=== PATIENT | male | born 1950 | race Caucasian/White ===

== ENCOUNTER 2019-08-25 11:44 | Emergency (ER) | payer MEDICARE, BC ==
[2019-08-25] MEDS ORDERED: Iopamidol 755 Mg/ML 100 ML Bottle IVPUSH ONE (12:17)
[2019-08-25 12:28] LABS: CHLORIDE,CL 106 mmol/L (98-107); SODIUM,NA 140 mmol/L (136-145)
--- NOTE | 2019-08-25 12:45 | EDM.PDOC ---
ED HPI GENERAL MEDICAL PROBLEM - General Chief Complaint: Neuro Symptoms/Deficits Stated Complaint: stroke code Time Seen by Provider: 08/25/19 11:44 Source of Information: Reports: Patient History Limitations: Reports: No Limitations - History of Present Illness INITIAL COMMENTS - FREE TEXT/NARRATIVE: Patient is a 69-year-old last one was at 6:00 in the morning states that he woke up earlier today and noticed that he had right-sided weakness and slurred speech at this time his NIH score was 7 Onset: Today Duration: Hour(s):, Constant Location: Reports: Head, Upper Extremity, Right, Lower Extremity, Right Severity: Moderate Worsens with: Reports: None Context: Reports: Other (Possible stroke) - Related Data Allergies Allergy/AdvReac Type Severity Reaction Status Date / Time No Known Allergies Allergy Verified 10/14/13 15:36 Home Meds: Home Meds Hydrochlorothiazide 12.5 mg PO DAILY 11/01/13 [History] Metoprolol Succinate [Toprol XL 100mg] 100 mg PO DAILY 11/01/13 [History] Terazosin [Hytrin] 10 mg PO DAILY 11/01/13 [History] Verapamil HCl [Verapamil ER] 240 mg PO DAILY 11/01/13 [History] atorvaSTATin [Lipitor] 20 mg PO DAILY 11/01/13 [History] Finasteride 5 mg PO DAILY 08/25/19 [History] Lisinopril 20 mg PO DAILY 08/25/19 [History] Sertraline [Zoloft] 25 mg PO DAILY 08/25/19 [History] ED ROS GENERAL - Review of Systems Review Of Systems: See Below Constitutional: Reports: Weakness HEENT: Reports: Other (Slurred speech) Respiratory: Reports: No Symptoms Cardiovascular: Reports: No Symptoms Endocrine: Reports: No Symptoms GI/Abdominal: Reports: No Symptoms : Reports: No Symptoms Musculoskeletal: Reports: No Symptoms, Other (Right-sided weakness) Skin: Reports: No Symptoms Neurological: Reports: Difficulty Walking, Other (Right-sided weakness) Psychiatric: Reports: No Symptoms Hematologic/Lymphatic: Reports: No Symptoms Immunologic: Reports: No Symptoms ED EXAM, GENERAL - Physical Exam Exam: See Below Ears: Normal External Exam, Normal Canal, Hearing Grossly Normal, Normal TMs Ear Exam: Bilateral Ear: Auricle Normal, Canal Normal, TM normal Nose: Normal Inspection, Normal Mucosa, No Blood Throat/Mouth: Normal Inspection, Normal Lips, Normal Teeth, Normal Gums, Normal Oropharynx, Normal Voice, No Airway Compromise Head: Atraumatic, Normocephalic Neck: Normal Inspection, Supple, Non-Tender, Full Range of Motion Respiratory/Chest: No Respiratory Distress, Lungs Clear, Normal Breath Sounds, No Accessory Muscle Use, Chest Non-Tender GI/Abdominal: Normal Bowel Sounds, Soft, Non-Tender, No Organomegaly, No Distention, No Abnormal Bruit, No Mass Rectal (Males) Exam: Normal Exam, Normal Rectal Tone, Prostate Normal Extremities: Normal Inspection, Normal Range of Motion, Non-Tender, Normal Capillary Refill, No Pedal Edema Neurological: Alert, Normal Cognition, Other (Right-sided drift right-sided weakness and slurred speech) Psychiatric: Normal Affect Skin Exam: Warm, Dry, Intact, Normal Color, No Rash Lymphatic: No Adenopathy Course - Orders/Labs/Meds Orders: Active Orders 24 hr Category Date Time Status Head wo Cont [CT] Routine Exams 08/25/19 11:54 Taken PROLACTIN [REF] Stat Lab 08/25/19 11:51 Received Labs: Laboratory Tests 08/25/19 08/25/19 08/25/19 Range/Units 11:46 11:51 11:51 WBC 6.4 (4.0-10.2) K/uL RBC 5.32 (4.33-5.41) M/uL Hgb 14.9 (13.1-16.8) g/dL Hct 45.6 (39.0-49.0) % MCV 85.7 (84.0-98.0) fL MCH 28.0 L (28.2-33.3) pg MCHC 32.7 (31.7-36.0) g/dL RDW 14.9 H (11.2-14.1) % Plt Count 214 (150-350) K/uL Neut % (Auto) 62.1 (45.0-80.0) % Lymph % (Auto) 28.1 (10.0-50.0) % [place] % (Auto) 7.6 (2.0-14.0) % Eos % (Auto) 1.9 (0.0-5.0) % Baso % (Auto) 0.3 (0.0-2.0) % Neut # (Auto) 3.98 (1.40-7.00) K/uL Lymph # (Auto) 1.80 (0.50-3.50) K/uL [place] # (Auto) 0.49 (0.00-1.00) K/uL Eos # (Auto) 0.12 (0.00-0.50) K/uL Baso # (Auto) 0.02 (0.00-0.20) K/uL PT 10.6 (9.5-12.0) SEC INR 1.0 APTT 29.4 (21.0-31.3) SEC D-Dimer, Quantitative (0-400) ng/mL Sodium (136-145) mmol/L Potassium (3.5-5.1) mmol/L Chloride (98-107) mmol/L Carbon Dioxide (21.0-32.0) mmol/L BUN (7-18) mg/dL Creatinine (0.51-1.17) mg/dL Est Cr Clr Drug Dosing Estimated GFR (MDRD) mL/min Glucose (74-106) mg/dL POC Glucose 96 (65-110) mg/dl Calcium (8.5-10.1) mg/dL Magnesium (1.8-2.4) mg/dL Total Bilirubin (0.2-1.0) mg/dL AST (15-37) U/L ALT (12-78) U/L Alkaline Phosphatase (46-116) IU/L Creatine Kinase (26-308) U/L Creatine Kinase Index (0.0-2.5) % CK-MB (CK-2) (0.00-3.60) ng/mL Troponin I (0.000-0.056) ng/mL NT-Pro-B Natriuret Pep (0-125) pg/mL Total Protein (6.4-8.2) g/dL Albumin (3.4-5.0) g/dL 08/25/19 08/25/19 Range/Units 11:51 11:51 WBC (4.0-10.2) K/uL RBC (4.33-5.41) M/uL Hgb (13.1-16.8) g/dL Hct (39.0-49.0) % MCV (84.0-98.0) fL MCH (28.2-33.3) pg MCHC (31.7-36.0) g/dL RDW (11.2-14.1) % Plt Count (150-350) K/uL Neut % (Auto) (45.0-80.0) % Lymph % (Auto) (10.0-50.0) % [place] % (Auto) (2.0-14.0) % Eos % (Auto) (0.0-5.0) % Baso % (Auto) (0.0-2.0) % Neut # (Auto) (1.40-7.00) K/uL Lymph # (Auto) (0.50-3.50) K/uL [place] # (Auto) (0.00-1.00) K/uL Eos # (Auto) (0.00-0.50) K/uL Baso # (Auto) (0.00-0.20) K/uL PT (9.5-12.0) SEC INR APTT (21.0-31.3) SEC D-Dimer, Quantitative 213 (0-400) ng/mL Sodium 140 (136-145) mmol/L Potassium 4.5 (3.5-5.1) mmol/L Chloride 106 (98-107) mmol/L Carbon Dioxide 26.0 (21.0-32.0) mmol/L BUN 26 H (7-18) mg/dL Creatinine 1.63 H (0.51-1.17) mg/dL Est Cr Clr Drug Dosing TNP Estimated GFR (MDRD) 42 mL/min Glucose 102 (74-106) mg/dL POC Glucose (65-110) mg/dl Calcium 10.0 (8.5-10.1) mg/dL Magnesium 1.9 (1.8-2.4) mg/dL Total Bilirubin 0.5 (0.2-1.0) mg/dL AST 13 L (15-37) U/L ALT 25 (12-78) U/L Alkaline Phosphatase 69 (46-116) IU/L Creatine Kinase 61 (26-308) U/L Creatine Kinase Index 1.6 (0.0-2.5) % CK-MB (CK-2) 1.00 (0.00-3.60) ng/mL Troponin I 0.000 (0.000-0.056) ng/mL NT-Pro-B Natriuret Pep 176 H (0-125) pg/mL Total Protein 7.5 (6.4-8.2) g/dL Albumin 3.5 (3.4-5.0) g/dL Meds: Medications Discontinued Medications Generic Name Dose Route Start Last Admin Trade Name Lizeth PRN Reason Stop Dose Admin Alteplase, Recombinant Confirm 08/25/19 12:05 Activase Administered 08/25/19 12:06 Dose 100 mg .ROUTE .STK-MED ONE Iopamidol 100 ml 08/25/19 12:17 Isovue-370 (76%) IVPUSH 08/25/19 12:18 ONETIME ONE Departure - Departure Time of Disposition: 12:47 Disposition: Home, Self-Care 01 Condition: Fair Clinical Impression: Right-sided cerebrovascular accident (CVA), Cerebrovascular accident (CVA) - Discharge Information *PRESCRIPTION DRUG MONITORING PROGRAM REVIEWED*: No *COPY OF PRESCRIPTION DRUG MONITORING REPORT IN PATIENT WANG: No Referrals: Marleen Pillai NP [Primary Care Provider] - Care Plan Goals: Spoke to neurology would like patient sent to ER at [facility] - My Orders Last 24 Hours: My Active Orders 08/25/19 11:51 PROLACTIN [REF] Stat 08/25/19 11:54 Head wo Cont [CT] Routine - Assessment/Plan Last 24 Hours: My Active Orders 08/25/19 11:51 PROLACTIN [REF] Stat 08/25/19 11:54 Head wo Cont [CT] Routine
== END 2019-08-25 12:55 | disposition home or self-care (01) ==
LOC: LL.ED 11:44
DX: I63.9 Cerebral infarction, unspecified (principal); R47.81 Slurred speech; Z79.899 Other long term (current) drug therapy
CPT/HCPCS: 36000; 70450; 80053; 82550; 82553; 82962; 83735; 83880; 84146; 84484; 85025; 85379; 85610; 85730; 93005; 99291-25

== ENCOUNTER 2020-03-07 07:55 | Day surgery (SDC) | payer MEDICARE, BC ==
[~2020-03-07 07:55] MED LIST: Lactated Ringers 1,000 ML IV SCH; Sodium Chloride 0.9% 10 ML Syringe FLUSH PRN
[2020-03-07] MEDS ORDERED: Propofol 200 MG/20 ML SDV ONE ×2 (08:41→08:57)
[2020-03-07] MEDS ORDERED: Midazolam 1 MG/ML 2 ML SDV ONE ×2 (08:41→08:57)
--- NOTE | 2020-03-07 09:07 | PCM.PN ---
- General Info Date of Service: 03/07/20 - Review of Systems Systems Review Comment:: 69-year-old male with her recently discovered colon guard positive test. He is here for colonoscopy. His last colon exam was approximately 5 years ago.This was an incomplete exam. He denies any recent rectal bleeding. He does note some history of constipation. His recent history and physical is reviewed and no significant changes are noted. Patient is medically stable to proceed today. I discussed the proposed colonoscopy with the patient. Risks such as but not limited to bleeding and GI injury reviewed. He agrees to proceed. - Patient Data Vitals - Most Recent: Last Vital Signs Temp 98 F 03/07/20 08:10 Pulse 68 03/07/20 08:10 Resp 20 03/07/20 08:10 BP 140/88 03/07/20 08:10 Pulse Ox 96 03/07/20 08:10 Weight - Most Recent: 142.882 kg Med Orders - Current: Current Medications Lactated Ringer's (Ringers, Lactated) 1,000 mls @ 125 mls/hr IV ASDIRECTED JOSSELIN Last Admin: 03/07/20 08:46 Dose: 125 mls/hr Sodium Chloride (Saline Flush) 10 ml FLUSH ASDIRECTED PRN PRN Reason: Keep Vein Open Discontinued Medications Midazolam HCl (Versed 1 Mg/Ml) Confirm Administered Dose 2 mg .ROUTE .STK-MED ONE Stop: 03/07/20 08:42 Propofol (Diprivan 20 Ml) Confirm Administered Dose 400 mg .ROUTE .STK-MED ONE Stop: 03/07/20 08:42 Sepsis Event Note - Focused Exam Vital Signs: Vital Signs Temp Pulse Resp BP Pulse Ox 03/07/20 08:10 98 F 68 20 140/88 96 Date Exam was Performed: 03/07/20 Time Exam was Performed: 09:05 - Problem List Review Problem List Initiated/Reviewed/Updated: Yes - Assessment Assessment:: positive colon guard - Plan Plan:: colonoscopy
--- NOTE | 2020-03-07 09:45 | PCM.OPNOTE ---
- General Post-Op/Procedure Note Date of Surgery/Procedure: 03/07/20 Operative Procedure(s): Colonoscopy with Polypectomy Findings: Large Pedunculated polyp in Sigmoid Colon Pre Op Diagnosis: + Cologuard Post-Op Diagnosis: Colon Polyp Anesthesia Technique: MAC Primary Surgeon: Milton Gonzalez Pathology: Sigmoid Colon Polyp Output, Urine Amount: 0 EBL in mLs: 0 Complications: None Condition: Good
[2020-03-07 10:01] VITALS: BP 102/59
[2020-03-07 10:09] VITALS: PULSE 61
--- NOTE | 2020-03-07 14:54 | OR ---
Date of Procedure: 03/07/2020 PREOPERATIVE DIAGNOSIS: Positive Cologuard. POSTOPERATIVE DIAGNOSIS: Sigmoid colon polyp. OPERATIONS PERFORMED: Colonoscopy with polypectomy. INDICATIONS FOR SURGERY: This 69-year-old male was recently noted to have positive Cologuard test. It has been several years since his last colonoscopy, and he is referred for this exam. FINDINGS: A single polyp was noted on today's exam. It is a 1.5 cm pedunculated polyp in the sigmoid colon, 25 cm from the anal verge. The remainder of the colon mucosa appeared normal. DESCRIPTION OF PROCEDURE: The patient was taken to the operating room. He was given intravenous sedation and with him in the left lateral decubitus position, digital rectal exam was performed showing no rectal masses. The Olympus colonoscope was inserted into the rectum. Retroflexed examination of the rectal canal was performed. The scope was then advanced to the sigmoid colon region where the above-described polyp was identified. It was removed with a cautery snare and withdrawn from the colon and retrieved by holding it on the end of the scope with suction and withdrawing the scope. After the polyp had been retrieved, the scope was then reinserted and then carefully advanced under direct visualization examining the entire colon. The patient's colon was long and somewhat tortuous and it was difficult to visualize the cecum, but with hand pressure and placing the patient in the supine position, the ascending colon was able to be entered with the scope and the cecum including the ileocecal valve viewed. The scope was then slowly withdrawn sequentially re-examining the colonic segments until the entire colon and rectum had been fully examined. The scope was removed, and the patient was taken from the operating room in satisfactory condition. ESTIMATED BLOOD LOSS: 0. COMPLICATIONS: None. PROGNOSIS: Good. MILAN Gonzalez MD /[id number]
== END 2020-03-07 10:30 | disposition home or self-care (01) ==
LOC: LL.SDS 07:55
PROVIDERS: ATTEND Surgery
DX: K51.40 Inflammatory polyps of colon without complications (principal); K40.90 Unilateral inguinal hernia, without obstruction or gangrene, not specified as recurrent; N40.1 Benign prostatic hyperplasia with lower urinary tract symptoms; E78.5 Hyperlipidemia, unspecified; I12.9 Hypertensive chronic kidney disease with stage 1 through stage 4 chronic kidney disease, or unspecified chronic kidney disease; N18.3 Chronic kidney disease, stage 3 (moderate); Q43.8 Other specified congenital malformations of intestine; Z91.14 Patient's other noncompliance with medication regimen; Z79.82 Long term (current) use of aspirin; Z79.899 Other long term (current) drug therapy
CPT/HCPCS: 00811; J2250; J2704; J7120

== ENCOUNTER 2022-09-12 09:11 | Emergency (ER) | payer MEDICARE, BC ==
[2022-09-12] MEDS ORDERED: Sodium Chloride 0.9% 10 ML Syringe FLUSH PRN (09:52)
[2022-09-12] MEDS ORDERED: methylPREDNISolone Sodium Succinate 125 MG/2 ML SDV IVPUSH PRN (09:53)
[2022-09-12] MEDS ORDERED: Famotidine 20 MG/2 ML SDV IVPUSH PRN (09:53)
[2022-09-12] MEDS ORDERED: diphenhydrAMINE 50 MG/ML SDV IVPUSH PRN (09:53)
[2022-09-12] MEDS ORDERED: EPINEPHrine 1 MG/ML SDV IM PRN (09:53)
[2022-09-12 10:04] LABS: CHLORIDE,CL 104 mmol/L (98-107); SODIUM,NA 139 mmol/L (136-145)
[2022-09-12 10:06] LABS: ESTIMATED GFR 31 mL/min (>=60)
[2022-09-12] MEDS: Sodium Chloride 0.9% 10 ML Syringe FLUSH SCH (10:25)
[2022-09-12] MEDS: Acetaminophen/HYDROcodone 325-5 MG Tab PO ONE (10:33)
[2022-09-12 11:16] VITALS: BP 148/81; PULSE 65
== END 2022-09-12 11:40 | disposition home or self-care (01) ==
LOC: LL.ED 09:11
DX: U07.1 COVID-19 (principal); E78.00 Pure hypercholesterolemia, unspecified; I10 Essential (primary) hypertension; Z79.899 Other long term (current) drug therapy
CPT/HCPCS: 36415; 71045; 80053; 85025; 96372; 99283; 99284; A9270-GY; J3490; M0222; Q0222

== ENCOUNTER 2022-10-10 12:06 | Inpatient (IN) | payer MEDICARE, BC ==
[2022-10-10] MEDS ORDERED: Ondansetron 4 MG/2 ML SDV IVPUSH ONE (12:15)
[2022-10-10 13:03] LABS: CORONAVIRUS COVID-19 NAA NEGATIVE (NEGATIVE); RESPIRATORY SYNCYTIAL VIR NAA NEGATIVE (NEGATIVE)
[2022-10-10 13:40] LABS: CHLORIDE,CL 105 mmol/L (98-107); ESTIMATED GFR 31 mL/min (>=60); SODIUM,NA 137 mmol/L (136-145)
[2022-10-10] MEDS: Sodium Chloride 0.9% 10 ML Syringe FLUSH PRN (13:44)
[2022-10-10] MEDS ORDERED: Furosemide 40 MG/4 ML VIAL IVPUSH ONE (13:57)
[2022-10-10] MEDS ORDERED: cloNIDine 0.1 MG Tab PO ONE (15:27)
[2022-10-10 16:20] LABS: O2 DELIVERY DEVICE ROOM AIR; PCO2 ARTERIAL 40 mmHG (35-45)
[2022-10-10 16:22] LABS: BASE EXCESS ARTERIAL -4 mmol/L (-2-3); BICARBONATE,ARTERIAL 21.4 mmol/L (22-26); O2 SATURATION ARTERIAL 89 % (95-98); PO2 ARTERIAL 59 mmHG (80-105)
[2022-10-10] MEDS: cefTRIAXone 1 GM in Sodium Chloride 0.9% 100 ML IV SCH (18:12)
[2022-10-10] MEDS: Albuterol/Ipratropium 3.0-0.5 MG/3 ML Neb Soln NEB SCH ×2 (18:14→23:38)
[2022-10-10] MEDS ORDERED: Ondansetron 4 MG/2 ML SDV IVPUSH PRN (18:55)
[2022-10-10] MEDS: atorvaSTATin 20 MG Tab PO SCH (19:55)
[2022-10-10] MEDS: Azithromycin 500 MG in Sodium Chloride 0.9% 250 ML IV SCH (19:56)
[2022-10-10] MEDS: Nystatin Topical Powder 15 GM Bottle TOP SCH (20:19)
[2022-10-11] MEDS: Albuterol/Ipratropium 3.0-0.5 MG/3 ML Neb Soln NEB SCH ×6 (00:20→20:13)
[2022-10-11] MEDS: Verapamil 120 MG Tab.ER PO SCH (07:43)
[2022-10-11] MEDS: Terazosin 5 MG Cap PO SCH (07:43)
[2022-10-11] MEDS: Sertraline 25 MG Tab PO SCH (07:44)
[2022-10-11] MEDS: Cholecalciferol (Vitamin D3) 25 MCG Tab PO SCH (07:44)
[2022-10-11] MEDS: Lisinopril 20 MG Tab PO SCH (07:44)
[2022-10-11] MEDS: Metoprolol Succinate 50 MG Tab.ER PO SCH (07:44)
[2022-10-11] MEDS: Finasteride 5 MG Tab PO SCH (07:44)
[2022-10-11] MEDS: Clopidogrel 75 MG Tab PO SCH (07:44)
[2022-10-11] MEDS: Nystatin Topical Powder 15 GM Bottle TOP SCH ×2 (07:45→17:38)
[2022-10-11 08:32] LABS: ANION GAP 7.2 meq/L (7-15)
[2022-10-11] MEDS: Ferrous Sulfate 325 MG Tab PO SCH (09:43)
[2022-10-11] MEDS: Acetaminophen 325 MG Tab PO PRN ×2 (12:17→20:16)
[2022-10-11] MEDS: cefTRIAXone 1 GM in Sodium Chloride 0.9% 100 ML IV SCH (17:02)
[2022-10-11] MEDS: Azithromycin 500 MG in Sodium Chloride 0.9% 250 ML IV SCH (17:36)
[2022-10-11] MEDS: atorvaSTATin 20 MG Tab PO SCH (20:12)
[2022-10-12] MEDS: Albuterol/Ipratropium 3.0-0.5 MG/3 ML Neb Soln NEB SCH ×6 (00:09→19:10)
[2022-10-12] MEDS: Cholecalciferol (Vitamin D3) 25 MCG Tab PO SCH (08:04)
[2022-10-12] MEDS: Metoprolol Succinate 50 MG Tab.ER PO SCH (08:04)
[2022-10-12] MEDS: Lisinopril 20 MG Tab PO SCH (08:05)
[2022-10-12] MEDS: Verapamil 120 MG Tab.ER PO SCH (08:05)
[2022-10-12] MEDS: Finasteride 5 MG Tab PO SCH (08:05)
[2022-10-12] MEDS: Sertraline 25 MG Tab PO SCH (08:06)
[2022-10-12] MEDS: Ferrous Sulfate 325 MG Tab PO SCH (08:06)
[2022-10-12] MEDS: Clopidogrel 75 MG Tab PO SCH (08:06)
[2022-10-12] MEDS: Terazosin 5 MG Cap PO SCH (08:06)
[2022-10-12 08:07] LABS: ANION GAP 6.2 meq/L (7-15)
[2022-10-12] MEDS: Nystatin Topical Powder 15 GM Bottle TOP SCH ×2 (08:07→17:13)
[2022-10-12] MEDS: Sodium Chloride 0.9% 10 ML Syringe FLUSH PRN (17:13)
[2022-10-12] MEDS: cefTRIAXone 1 GM in Sodium Chloride 0.9% 100 ML IV SCH (17:13)
[2022-10-12] MEDS: Azithromycin 500 MG in Sodium Chloride 0.9% 250 ML IV SCH (18:17)
[2022-10-12] MEDS: atorvaSTATin 20 MG Tab PO SCH (19:10)
[2022-10-12] MEDS: Acetaminophen 325 MG Tab PO PRN (19:29)
[2022-10-13] MEDS: Albuterol/Ipratropium 3.0-0.5 MG/3 ML Neb Soln NEB SCH ×5 (01:21→11:47)
[2022-10-13] MEDS: Verapamil 120 MG Tab.ER PO SCH (07:28)
[2022-10-13] MEDS: Ferrous Sulfate 325 MG Tab PO SCH (07:29)
[2022-10-13] MEDS: Nystatin Topical Powder 15 GM Bottle TOP SCH (07:30)
[2022-10-13] MEDS: Terazosin 5 MG Cap PO SCH (07:30)
[2022-10-13] MEDS: Clopidogrel 75 MG Tab PO SCH (07:31)
[2022-10-13] MEDS: Finasteride 5 MG Tab PO SCH (07:32)
[2022-10-13] MEDS: Lisinopril 20 MG Tab PO SCH (07:32)
[2022-10-13] MEDS: Metoprolol Succinate 50 MG Tab.ER PO SCH (07:33)
[2022-10-13] MEDS: Sertraline 25 MG Tab PO SCH (07:34)
[2022-10-13] MEDS: Cholecalciferol (Vitamin D3) 25 MCG Tab PO SCH (07:34)
[2022-10-13] MEDS: Sodium Chloride 0.9% 10 ML Syringe FLUSH PRN ×2 (13:38→14:51)
[2022-10-13] MEDS ORDERED: Azithromycin 500 MG in Sodium Chloride 0.9% 250 ML IV ONE (14:00)
[2022-10-13] MEDS ORDERED: cefTRIAXone 1 GM in Sodium Chloride 0.9% 100 ML IV ONE (15:00)
[2022-10-13 16:01] VITALS: BP 141/90; PULSE 71
== END 2022-10-13 15:37 | disposition home or self-care (01) | DRG 195 ==
LOC: LL.ED 12:06 → LL.MS 15:41 → UNDOADMOB 17:56 → LL.MS 17:56 → OBSVTOIN 18:47
PROVIDERS: ADMIT Nurse Practitioner Family; ATTEND Nurse Practitioner Family
DX: J18.9 Pneumonia, unspecified organism (principal); W19.XXXA Unspecified fall, initial encounter; R60.9 Edema, unspecified; I10 Essential (primary) hypertension; H66.92 Otitis media, unspecified, left ear; E78.00 Pure hypercholesterolemia, unspecified; N40.0 Benign prostatic hyperplasia without lower urinary tract symptoms; N42.9 Disorder of prostate, unspecified; Z20.822 Contact with and (suspected) exposure to COVID-19; S20.229A Contusion of unspecified back wall of thorax, initial encounter; Z86.73 Personal history of transient ischemic attack (TIA), and cerebral infarction without residual deficits; Z79.02 Long term (current) use of antithrombotics/antiplatelets; Z79.899 Other long term (current) drug therapy; Y92.009 Unspecified place in unspecified non-institutional (private) residence as the place of occurrence of the external cause; Z86.19 Personal history of other infectious and parasitic diseases
CPT/HCPCS: 0241U; 36415; 36600; 71045; 80053; 82803; 83735; 83880; 84484; 85025; 93005; 94640; 94762; 96374; 96375; 97162-GP; 97165-GO; 99285-25; A9270-GY; J0456; J0696; J1940; J2405; J3490; J7050; J7620-GY

== ENCOUNTER 2025-02-21 14:17 | Emergency (ER) | payer MEDICARE, BC ==
[2025-02-21 14:56] LABS: APPEARANCE,URINE CLEAR; BILIRUBIN,URINE NEGATIVE (NEGATIVE); COLOR,URINE YELLOW; GLUCOSE,URINE NEGATIVE (NEGATIVE); KETONES,URINE NEGATIVE (NEGATIVE); LEUKOCYTE ESTERASE,URINE NEGATIVE (NEGATIVE); NITRITE,URINE NEGATIVE (NEGATIVE); OCCULT BLOOD,URINE NEGATIVE (NEGATIVE); PH,URINE 5.5 (5.0-9.0); PROTEIN,URINE 30 mg/dL (NEGATIVE); UROBILINOGEN,URINE 0.2 E.U./dL (0.2-1.0)
[2025-02-21 15:00] LABS: BASOPHILS ABSOLUTE AUTO 0.02 K/uL (0.00-0.20); BASOPHILS PERCENT AUTO 0.3 % (0.0-2.0); EOSINOPHILS ABSOLUTE AUTO 0.17 K/uL (0.00-0.50); EOSINOPHILS PERCENT AUTO 2.6 % (0.0-5.0); HEMOGLOBIN 10.4 g/dL (13.1-16.8); IMMATURE GRAN ABSOLUTE AUTO 0.03 10^3/uL (0.00-0.04); IMMATURE GRAN PERCENT AUTO 0.5 % (0.0-0.4); LYMPHOCYTES ABSOLUTE AUTO 1.08 K/uL (0.50-3.50); LYMPHOCYTES PERCENT AUTO 16.3 % (10.0-50.0); MEAN CORPUSCULAR HGB CONC 32.5 g/dL (31.7-36.0); MONOCYTES ABSOLUTE AUTO 0.57 K/uL (0.00-1.00); MONOCYTES PERCENT AUTO 8.6 % (2.0-14.0); NEUTROPHILS ABSOLUTE AUTO 4.74 K/uL (1.40-7.00); NEUTROPHILS PERCENT AUTO 71.7 % (45.0-80.0); PLATELET COUNT,PLT 253 K/uL (150-350); RED BLOOD CELL COUNT 3.72 M/uL (4.33-5.41); RED CELL DISTRIBUTION WIDTH 14.1 % (11.2-14.1); WHITE BLOOD CELL COUNT,WBC 6.6 K/uL (4.0-10.2)
[2025-02-21 15:00] LABS: ALBUMIN 2.5 g/dL (3.4-5.0); ANION GAP 7.2 meq/L (7-15); BILIRUBIN TOTAL 0.7 mg/dL (0.2-1.0); CALCIUM 9.3 mg/dL (8.5-10.1); CARBON DIOXIDE,CO2 25.8 mmol/L (21.0-32.0); EST CRCL DRUG DOSING (CG) 19.11 mL/min; POTASSIUM,K 4.4 mmol/L (3.5-5.1)
[2025-02-21 15:02] LABS: CREATININE 3.34 mg/dL (0.51-1.17)
[2025-02-21 15:12] LABS: LACTIC ACID 1.1 mmol/L (0.4-2.0)
[2025-02-21 15:15] LABS: RBC,URINE 0-5 /HPF; WBC,URINE 0-5 /HPF
[2025-02-21 15:29] LABS: AMPHETAMINES SCREEN, URINE NEGATIVE (NEGATIVE); BARBITURATE SCREEN,URINE NEGATIVE (NEGATIVE); BENZODIAZEPINES SCREEN,URINE NEGATIVE (NEGATIVE); BUPRENORPHINE SCREEN,URINE NEGATIVE (NEGATIVE); COCAINE METABOLITES,URINE NEGATIVE (NEGATIVE); EDDP,URINE SCREEN NEGATIVE (NEGATIVE); METHAMPHETAMINES SCREEN, URINE NEGATIVE (NEGATIVE); OXYCODONE SCREEN,URINE NEGATIVE (NEGATIVE); TCA SCREEN,URINE NEGATIVE (NEGATIVE); THC SCREEN,URINE 50 NG/ML NEGATIVE (NEGATIVE)
[2025-02-21] MEDS: Lactated Ringers 1,000 ML IV SCH (15:38)
[2025-02-21 18:36] LABS: ANION GAP 7.1 meq/L (7-15); CALCIUM 9.4 mg/dL (8.5-10.1); CARBON DIOXIDE,CO2 26.9 mmol/L (21.0-32.0); EST CRCL DRUG DOSING (CG) 20.59 mL/min; POTASSIUM,K 4.5 mmol/L (3.5-5.1)
[2025-02-21 18:39] LABS: CREATININE 3.1 mg/dL (0.51-1.17)
[2025-02-21 18:46] VITALS: BP 163/96; PULSE 75
== END 2025-02-21 18:30 | disposition home or self-care (01) ==
LOC: SUPCPDRO 14:17 → LL.ED 14:17
DX: R44.0 Auditory hallucinations (principal); F05 Delirium due to known physiological condition; N17.9 Acute kidney failure, unspecified; I12.9 Hypertensive chronic kidney disease with stage 1 through stage 4 chronic kidney disease, or unspecified chronic kidney disease; N18.4 Chronic kidney disease, stage 4 (severe); E78.00 Pure hypercholesterolemia, unspecified; Z86.73 Personal history of transient ischemic attack (TIA), and cerebral infarction without residual deficits; Z79.899 Other long term (current) drug therapy
CPT/HCPCS: 36415; 70450; 80048; 80053; 80305-QW; 81001; 82140; 83605; 85025; 96360; 96361; 99284; 99285-25; J7120